=== PATIENT | male | born 1960 | race Caucasian/White ===

== ENCOUNTER 2018-01-16 18:31 | Observation (INO) | payer BC, OTHER ==
[~2018-01-16] VITALS: Ht 175.3 cm; Wt 62.2 kg
[2018-01-16 18:33] VITALS: BP 156/83; PULSE 95; RESP 18; TEMP 99.4; O2SAT 97
[2018-01-16] MEDS ORDERED: SODIUM CHLORIDE 0.9% FLUSH 10 ML FLUSH IV FLUSH PRN ×2 (19:00→21:15)
[2018-01-16 19:16] VITALS: RESP 18; O2SAT 95
[2018-01-16 19:21] LABS: AUTOMATED NEUTROPHIL # 3.1 TH/MM3 (1.8-7.7); BASOPHIL # 0.1 TH/MM3 (0-0.2); BASOPHIL % 2.1 % (0.0-2.0); EOSINOPHIL # 0.3 TH/MM3 (0-0.4); EOSINOPHIL % 5.1 % (0.0-4.0); HEMATOCRIT 40.5 % (39.0-51.0); HEMOGLOBIN 13.8 GM/DL (13.0-17.0); LYMPH % 30.5 % (9.0-44.0); LYMPHOCYTE # 1.7 TH/MM3 (1.0-4.8); MEAN CELL VOLUME 94.2 FL (80.0-100.0); MEAN CORPUSCULAR HEMOGLOBIN 32.1 PG (27.0-34.0); MEAN CORPUSCULAR HGB CONC 34.1 % (32.0-36.0); MEAN PLATELET VOLUME 8.5 FL (7.0-11.0); MONOCYTE # 0.5 TH/MM3 (0-0.9); NEUT % 54.3 % (16.0-70.0); PLATELET COUNT 121 TH/MM3 (150-450); RED CELL DISTRIBUTION WIDTH 11.7 % (11.6-17.2); WHITE BLOOD COUNT 5.7 TH/MM3 (4.0-11.0)
[2018-01-16 19:22] LABS: BILIRUBIN, URINE NEG (NEG); BLOOD, URINE NEG (NEG); GLUCOSE,URINE NEG (NEG); KETONE, URINE NEG (NEG); NITRITE,URINE NEG (NEG); PH, URINE 5.5 (5.0-8.5); URINE COLOR YELLOW (YELLW/STRAW); URINE LEUKOCYTE ESTERASE NEG (NEG)
--- NOTE | 2018-01-16 19:37 | RADRPT ---
EXAM DATE/TIME: 01/16/2018 19:09 [place] COMPARISON: No previous studies available for comparison. INDICATIONS : Left side chest pain. No known injury. MEDICAL HISTORY : None. SURGICAL HISTORY : None. ENCOUNTER: Initial ACUITY: 2 weeks PAIN SCORE: 4/10 LOCATION: Left chest FINDINGS: PA and lateral views of the chest demonstrate the lungs to be symmetrically aerated without evidence of mass, infiltrate or effusion. The cardiomediastinal contours are unremarkable. Osseous structure s are intact. CONCLUSION: No acute disease. Roger Parnell MD on January 16, 2018 at 19:34 Board Certified Radiologist. This report was verified electronically.
[2018-01-16 19:52] LABS: CHLORIDE 99 MEQ/L (98-107); SODIUM (NA) 133 MEQ/L (136-145)
[2018-01-16 19:55] LABS: CALCIUM 8.9 MG/DL (8.5-10.1)
[2018-01-16 19:56] LABS: BICARBONATE 24.6 MEQ/L (21.0-32.0); BLOOD UREA NITROGEN 5 MG/DL (7-18); GLUCOSE,RANDOM 89 MG/DL (74-106)
[2018-01-16 19:59] LABS: ALT (GPT) 98 U/L (12-78); AST (GOT) 93 U/L (15-37); CREATININE 0.59 MG/DL (0.60-1.30); GLOMERULAR FILTRATION RATE 143 ML/MIN (>89)
[2018-01-16 20:01] LABS: TOTAL BILIRUBIN ADULT 0.6 MG/DL (0.2-1.0); TOTAL PROTEIN 8.2 GM/DL (6.4-8.2)
[2018-01-16 20:02] LABS: ALKALINE PHOSPHATASE 97 U/L (45-117)
[2018-01-16 20:04] LABS: TROPONIN I LESS THAN 0.02 NG/ML (0.02-0.05)
--- NOTE | 2018-01-16 20:09 | PD ---
HPI Chief Complaint: General Weakness Time Seen by Provider: 18:44 Travel History International Travel<30 days: No Contact w/Intl Traveler<30days: No Traveled to known affect area: No History of Present Illness HPI 57-year-old male arrives describing left-sided chest pain towards the lower portion of the chest and into the back. He reports loss of appetite for 2 weeks. He reports fatigue and state of excessive tiredness. Any movement leads to lightheadedness. He reports vomiting today. He denies diarrhea. He denies nausea. No shortness of breath or chest pain. Patient reports striking alcohol for most of his life at least 8 drinks daily. No cough. No fever. PFSH Past Medical History Tetanus Vaccination: > 5 Years Influenza Vaccination: No Social History Alcohol Use: Yes (12 Beers/Day) Tobacco Use: Yes (1.5 PPD) Substance Use: No Allergies-Medications (Allergen,Severity, Reaction): Coded Allergies: No Known Allergies (Verified Allergy, Unknown, 01/16/18) Reported Meds & Prescriptions Reported Meds & Active Scripts Active Review of Systems Except as stated in HPI: all other systems reviewed are Neg General / Constitutional: No: Fever Physical Exam Narrative GENERAL: 57-year-old male pleasant well-nourished well-developed Vital Signs Date Time Temp Pulse Resp B/P (MAP) Pulse Ox O2 Delivery O2 Flow Rate FiO2 01/16/18 19:16 18 95 Room Air 01/16/18 19:00 18 95 Room Air 01/16/18 18:33 99.4 95 18 156/83 (107) 97 SKIN: Warm and dry. HEAD: Atraumatic. Normocephalic. EYES: Pupils equal and round. No scleral icterus. No injection or drainage. ENT: No nasal bleeding or discharge. Mucous membranes pink and moist. NECK: Trachea midline. No JVD. CARDIOVASCULAR: Regular rate and rhythm. RESPIRATORY: No accessory muscle use. Clear to auscultation. Breath sounds equal bilaterally. GASTROINTESTINAL: Abdomen soft, non-tender, nondistended. Hepatic and splenic margins not palpable. MUSCULOSKELETAL: Extremities without clubbing, cyanosis, or edema. No obvious deformities. NEUROLOGICAL: Awake and alert. No obvious cranial nerve deficits. Motor grossly within normal limits. Five out of 5 muscle strength in the arms and legs. Normal speech. PSYCHIATRIC: Appropriate mood and affect; insight and judgment normal. Data Data Last Documented VS Vital Signs Date Time Temp Pulse Resp B/P (MAP) Pulse Ox O2 Delivery O2 Flow Rate FiO2 01/16/18 19:16 18 95 Room Air 01/16/18 18:33 99.4 95 156/83 (107) Orders Orders Electrocardiogram (01/16/18 18:49) Complete Blood Count With Diff (01/16/18 18:49) Comprehensive Metabolic Panel (01/16/18 18:49) Creatine Kinase (Cpk) (01/16/18 18:49) Prothrombin Time / Inr (Pt) (01/16/18 18:49) Act Partial Throm Time (Ptt) (01/16/18 18:49) Troponin I (01/16/18 18:49) Thyroid Stimulating Hormone (01/16/18 18:49) Urinalysis - C+S If Indicated (01/16/18 18:49) Chest, Pa & Lat (01/16/18 18:49) Ecg Monitoring (01/16/18 18:49) Iv Access Insert/Monitor (01/16/18 18:49) Oximetry (01/16/18 18:49) Sodium Chloride 0.9% Flush (Ns Flush) (01/16/18 19:00) Drug Screen, Random Urine (01/16/18 18:49) Alcohol (Ethanol) (01/16/18 18:49) Admit Order (Ed Use Only) (01/16/18 ) Customer Supply Coordinator / Telemetry [id number] (01/16/18 21:07) Vital Signs (Adult) Q4H (01/16/18 21:07) Diet Npo (01/17/18 Breakfast) Activity Bed Rest (01/16/18 21:07) Notify Dr: Other (01/16/18 21:07) Labs Laboratory Tests Test 01/16/18 19:00 01/16/18 19:10 Urine Collection Type CLEAN CATCH Urine Color YELLOW Urine Turbidity CLEAR Urine pH 5.5 Urine Specific [place] LESS/EQUAL 1.005 Urine Protein NEG mg/dL Urine Glucose (UA) NEG mg/dL Urine Ketones NEG mg/dL Urine Occult Blood NEG Urine Nitrite NEG Urine Bilirubin NEG Urine Urobilinogen 0.2 MG/DL Urine Leukocyte Esterase NEG Urine Squamous Epithelial Cells 0-5 /hpf Microscopic Urinalysis Comment CULT NOT INDICATED Urine Opiates Screen NEG Urine Barbiturates Screen NEG Urine Amphetamines Screen NEG Urine Benzodiazepines Screen NEG Urine Cocaine Screen NEG Urine Cannabinoids Screen NEG White Blood Count 5.7 TH/MM3 Red Blood Count 4.30 MIL/MM3 Hemoglobin 13.8 GM/DL Hematocrit 40.5 % Mean Corpuscular Volume 94.2 FL Mean Corpuscular Hemoglobin 32.1 PG Mean Corpuscular Hemoglobin Concent 34.1 % Red Cell Distribution Width 11.7 % Platelet Count 121 TH/MM3 Mean Platelet Volume 8.5 FL Neutrophils (%) (Auto) 54.3 % Lymphocytes (%) (Auto) 30.5 % Monocytes (%) (Auto) 8.0 % Eosinophils (%) (Auto) 5.1 % Basophils (%) (Auto) 2.1 % Neutrophils # (Auto) 3.1 TH/MM3 Lymphocytes # (Auto) 1.7 TH/MM3 Monocytes # (Auto) 0.5 TH/MM3 Eosinophils # (Auto) 0.3 TH/MM3 Basophils # (Auto) 0.1 TH/MM3 CBC Comment DIFF FINAL Differential Comment Prothrombin Time 11.3 SEC Prothromb Time International Ratio 1.1 RATIO Activated Partial Thromboplast Time 28.7 SEC Blood Urea Nitrogen 5 MG/DL Creatinine 0.59 MG/DL Random Glucose 89 MG/DL Total Protein 8.2 GM/DL Albumin 4.0 GM/DL Calcium Level 8.9 MG/DL Alkaline Phosphatase 97 U/L Aspartate Amino Transf (AST/SGOT) 93 U/L Alanine Aminotransferase (ALT/SGPT) 98 U/L Total Bilirubin 0.6 MG/DL Sodium Level 133 MEQ/L Potassium Level 3.4 MEQ/L Chloride Level 99 MEQ/L Carbon Dioxide Level 24.6 MEQ/L Anion Gap 9 MEQ/L Estimat Glomerular Filtration Rate 143 ML/MIN Total Creatine Kinase 91 U/L Troponin I LESS THAN 0.02 NG/ML Thyroid Stimulating Hormone 3rd Gen 1.760 uIU/ML Ethyl Alcohol Level 46 MG/DL [facility] Medical Decision Making Medical Screen Exam Complete: Yes Emergency Medical Condition: Yes Medical Record Reviewed: Yes Differential Diagnosis cirrhosis, anemia, pneumonia, pneumothorax, metabolic disorder Narrative Course CBC & BMP Diagram 01/16/18 19:10 Total Protein 8.2, Albumin 4.0, Calcium Level 8.9, Alkaline Phosphatase 97, Aspartate Amino Transf (AST/SGOT) 93 H, Alanine Aminotransferase (ALT/SGPT) 98 H , Total Bilirubin 0.6 The troponin is less than 0.02 EKG shows sinus rhythm with a rate 84 with T-wave inversions in multiple lateral leads Last Impressions Chest X-Ray 01/16/18 3091 Signed Impressions: Service Date/Time: Tuesday, January 16, 2018 19:09 - CONCLUSION: No acute disease. Roger Parnell MD There is concern that the patient has liver disease due to chronic drinking. The EKG abnormalities coupled with left-sided chest pain is also of concern. The patient is a smoker. He has no family history of coronary artery disease diabetes hypertension hyperlipidemia. A low risk chest pain center evaluation is considered reasonable for this patient is amenable to plan. Case was discussed with Shun for the [facility] service. Admission under Dr Olivares Diagnosis Primary Impression: Chest pain Qualified Codes: R07.9 - Chest pain, unspecified Additional Impressions: Alcoholism Transaminitis Admitting Information Admitting Physician Requests: Observation Brennen Herman MD Jan 16, 2018 20:09
[2018-01-16 20:25] LABS: SQUAMOUS EPITHELIAL CELL URINE 0-5 /hpf (0-5)
[2018-01-16] MEDS ORDERED: NITROGLYCERIN 0.4 MG SL 25 TABS/BTL SL PRN (21:15)
[2018-01-16 21:20] LABS: INTERNATIONAL NORMALIZED RATIO 1.1 RATIO; PROTHROMBIN TIME - PATIENT 11.3 SEC (9.8-11.6)
[2018-01-16] MEDS ORDERED: MORPHINE SULFATE 2 MG/ML SYRINGE IV PUSH PRN (21:30)
[2018-01-16 22:45] VITALS: PULSE 66
[2018-01-17] VITALS: BP 156/84; PULSE 68; RESP 18; TEMP 97.5; O2SAT 97
[2018-01-17 01:10] VITALS: O2SAT 98
[2018-01-17 01:52] LABS: TROPONIN I LESS THAN 0.02 NG/ML (0.02-0.05)
[2018-01-17 04:00] VITALS: BP 122/73; PULSE 66; RESP 18; TEMP 97.6; O2SAT 97
[2018-01-17 08:00] VITALS: BP 120/79; PULSE 65; PULSE 68; RESP 18; TEMP 98.5; O2SAT 97
[2018-01-17 08:23] LABS: TROPONIN I LESS THAN 0.02 NG/ML (0.02-0.05)
--- NOTE | 2018-01-17 08:25 | HHI.HP ---
[facility] Service [facility] Primary Care Physician No Primary Care Physician Admission Diagnosis Chest Pain Diagnoses: (1) Chest pain Chief Complaint: Chest discomfort Travel History International Travel<30 Days: No Contact w/Intl Traveler <30 Da: No Traveled to Known Affected Are: No History of Present Illness 58-year-old male with no chronic medical illnesses who presented to the emergency department for evaluation of chest discomfort. Patient states that for the last few weeks he has been experiencing a pain noted in his left lower rib cage without any radiation to his neck, back, shoulder, arm. He states that it is the pain 3/10 on a pain scale he states that it lasts for a few minutes at a time and resolves on its own. He states he had up to 3 times daily with associated nausea, dizziness. Indicates that it is nonexertional, does not worsen whenever he eats. There is no shortness of breath, dyspnea, diaphoresis, vomiting. He has had decreased appetite over the last few weeks as well. Patient had evaluation in the emergency department is recommended that the patient be observed in chest pain center for further evaluation and management. Review of Systems Constitutional: COMPLAINS OF: Dizziness, Change in appetite Cardiovascular: COMPLAINS OF: Chest pain Gastrointestinal: COMPLAINS OF: Nausea Except as stated in HPI: all other systems reviewed are Neg Past Family Social History Past Medical History No chronic medical illnesses Past Surgical History Lipoma removal Reported Medications No outpatient medications Allergies: Coded Allergies: No Known Allergies (Verified Allergy, Unknown, 01/16/18) Family History Family history reviewed and unremarkable for any heart disease, lung disease, kidney disease, diabetes, cancer, seizures, stroke Social History Patient continues to smoke 1 pack of cigarettes a day since he was 19 years old , he does drink alcohol daily 6-8 beers. Denies any illicit drug Physical Exam Vital Signs Vital Signs Date Time Temp Pulse Resp B/P (MAP) Pulse Ox O2 Delivery O2 Flow Rate FiO2 01/17/18 04:00 97.6 66 18 122/73 (89) 97 01/17/18 01:10 98 21 01/17/18 00:00 97.5 68 18 156/84 (108) 97 01/16/18 22:45 66 01/16/18 19:16 18 95 Room Air 01/16/18 19:00 18 95 Room Air 01/16/18 18:33 99.4 95 18 156/83 (107) 97 Physical Exam GENERAL: Well-developed, well-nourished, in no acute distress. alert and orientated HEENT: Head is normocephalic without any lesions or masses noted. Facial features are symmetric. Eyes: Pupils equal round reactive to light. Extraocular muscles are intact. Conjunctivae were clear. Oropharyngeal: Pharynx without any erythema edema. Tongue is midline without deviation. Buccal mucosa is moist without any masses or lesions NECK: Supple without any masses. Trachea midline no deviation. No JVD, no bruits are appreciated CARDIAC: Regular rhythm, regular rate. S1/S2 are heard. No murmurs gallops or rubs. LUNGS: Clear to auscultation bilaterally. No wheeze, rhonchi or rales. No use of accessory muscles on inspiration or expiration. ABDOMEN: Soft, nontender. Nondistended. Bowel sounds heard in all 4 quadrants. No organomegaly or masses. Negative rebound, negative guarding EXTREMITIES: No edema, pulses are equal bilaterally. No cyanosis or clubbing NEUROLOGY: Mood and affect appear appropriate. Cranial nerves II through XII grossly intact. Muscle strength 5/5 in upper and lower extremities bilaterally. Deep tendon reflexes are 2+ in upper and lower extremities bilaterally. Laboratory Laboratory Tests Test 01/16/18 19:00 01/16/18 19:10 01/17/18 01:30 01/17/18 07:25 Urine Collection Type CLEAN CATCH Urine Color YELLOW Urine Turbidity CLEAR Urine pH 5.5 Urine Specific [place] LESS/EQUAL 1.005 Urine Protein NEG Urine Glucose (UA) NEG Urine Ketones NEG Urine Occult Blood NEG Urine Nitrite NEG Urine Bilirubin NEG Urine Urobilinogen 0.2 Urine Leukocyte Esterase NEG Urine Squamous Epithelial Cells 0-5 Microscopic Urinalysis Comment CULT NOT INDICATED Urine Opiates Screen NEG Urine Barbiturates Screen NEG Urine Amphetamines Screen NEG Urine Benzodiazepines Screen NEG Urine Cocaine Screen NEG Urine Cannabinoids Screen NEG White Blood Count 5.7 Red Blood Count 4.30 Hemoglobin 13.8 Hematocrit 40.5 Mean Corpuscular Volume 94.2 Mean Corpuscular Hemoglobin 32.1 Mean Corpuscular Hemoglobin Concent 34.1 Red Cell Distribution Width 11.7 Platelet Count 121 Mean Platelet Volume 8.5 Neutrophils (%) (Auto) 54.3 Lymphocytes (%) (Auto) 30.5 Monocytes (%) (Auto) 8.0 Eosinophils (%) (Auto) 5.1 Basophils (%) (Auto) 2.1 Neutrophils # (Auto) 3.1 Lymphocytes # (Auto) 1.7 Monocytes # (Auto) 0.5 Eosinophils # (Auto) 0.3 Basophils # (Auto) 0.1 CBC Comment DIFF FINAL Differential Comment Prothrombin Time 11.3 Prothromb Time International Ratio 1.1 Activated Partial Thromboplast Time 28.7 Blood Urea Nitrogen 5 Creatinine 0.59 Random Glucose 89 Total Protein 8.2 Albumin 4.0 Calcium Level 8.9 Alkaline Phosphatase 97 Aspartate Amino Transf (AST/SGOT) 93 Alanine Aminotransferase (ALT/SGPT) 98 Total Bilirubin 0.6 Sodium Level 133 Potassium Level 3.4 Chloride Level 99 Carbon Dioxide Level 24.6 Anion Gap 9 Estimat Glomerular Filtration Rate 143 Total Creatine Kinase 91 81 Troponin I LESS THAN 0.02 LESS THAN 0.02 Thyroid Stimulating Hormone 3rd Gen 1.760 Ethyl Alcohol Level 46 Result Diagram: 01/16/18190901/16/181909 Imaging Last Impressions Chest X-Ray 01/16/18 184 Signed Impressions: Service Date/Time: Tuesday, January 16, 2018 19:09 - CONCLUSION: No acute disease. MD Moo Prasad VTE Risk Assessment Moo VTE Risk Assessment: No/Low Risk (score <= 1) Caprini Risk Assessment Model Point Value = 1 Point Value = 2 Point Value = 3 Point Value = 5 Age 41-60 Minor surgery BMI > 25 kg/m2 Swollen legs Varicose veins or History of unexplained or recurrent spontaneous Oral contraceptives or hormone replacement Sepsis (< 1 month) Serious lung disease, including pneumonia (< 1 month) Abnormal pulmonary function Acute myocardial infarction Congestive heart failure (< 1 month) History of inflammatory bowel disease Medical patient at bed rest Age 61-74 Arthroscopic surgery Major open surgery (> 45 min) Laparoscopic surgery (> 45 min) Malignancy Confined to bed (> 72 hours) Immobilizing plaster cast Central venous access Age >= 75 History of VTE Family history of VTE Factor V Leiden Prothrombin [id number] Lupus anticoagulant Anticardiolipin antibodies Elevated serum homocysteine Heparin-induced thrombocytopenia Other congenital or acquired thrombophilia Stroke (< 1 month) Elective arthroplasty Hip, pelvis, or leg fracture Acute spinal cord injury (< 1 month) Prophylaxis Regimen Total Risk Factor Score Risk Level Prophylaxis Regimen 0-1 Low Early ambulation 2 Moderate Order ONE of the following: *Sequential Compression Device (SCD) *Heparin 5000 units SQ BID 3-4 Higher Order ONE of the following medications: *Heparin 5000 units SQ TID *Enoxaparin/Lovenox 40 mg SQ daily (WT < 150 kg, CrCl > 30 mL/min) *Enoxaparin/Lovenox 30 mg SQ daily (WT < 150 kg, CrCl > 10-29 mL/min) *Enoxaparin/Lovenox 30 mg SQ BID (WT < 150 kg, CrCl > 30 mL/min) AND/OR *Sequential Compression Device (SCD) 5 or more Highest Order ONE of the following medications: *Heparin 5000 units SQ TID (Preferred with Epidurals) *Enoxaparin/Lovenox 40 mg SQ daily (WT < 150 kg, CrCl > 30 mL/min) *Enoxaparin/Lovenox 30 mg SQ daily (WT < 150 kg, CrCl > 10-29 mL/min) *Enoxaparin/Lovenox 30 mg SQ BID (WT < 150 kg, CrCl > 30 mL/min) AND *Sequential Compression Device (SCD) Assessment and Plan Assessment and Plan Chest pain, atypical Patient with minimal risk factors to include age, tobacco use Patient has been ruled out for acute coronary event with serial cardiac enzymes that are negative Serial EKGs reviewed by myself shows sinus rhythm without any changes Lipase was performed which was normal Exercise stress test was performed and did not indicate any signs of ischemia Transaminitis Likely secondary to chronic alcohol use Physical exam unremarkable for any acute etiology Recommend outpatient follow-up and monitoring Acute intoxication with chronic alcohol use Monitor for withdrawal Chronic tobacco use Counseled on cessation DVT prevention Low risk, early ambulation Discharge disposition Discharge home in stable condition Activity: Ad digna. Diet: Regular diet Medication per medication reconciliation Follow-up with primary medical doctor in 1 week Problem Qualifiers (1) Chest pain: Qualified Codes: R07.9 - Chest pain, unspecified Bryan Irving Jan 17, 2018 08:25
[2018-01-17] MEDS ORDERED: PANTOPRAZOLE SOD 40 MG DELAYED RELEASE TAB PO SCH (09:00)
[2018-01-17] MEDS ORDERED: SODIUM CHLORIDE 0.9% FLUSH 10 ML FLUSH IV FLUSH SCH (09:00)
--- NOTE | 2018-01-17 09:12 | HHI.DCPOC ---
Discharge Care Plan Diagnosis: (1) Chest pain Goals to Promote Your Health * To prevent worsening of your condition and complications * To maintain your health at the optimal level Directions to Meet Your Goals Take your medications as prescribed Follow your dietary instruction Follow activity as directed Keep your appointments as scheduled Take your immunizations and boosters as scheduled If your symptoms worsen call your PCP, if no PCP go to Urgent Care Center or Emergency Room Smoking is Dangerous to Your Health. Avoid second hand smoke Call the 24-hour hour crisis hotline for domestic abuse at Bryan Irving Jan 17, 2018 09:12
[2018-01-17] MEDS ORDERED: PANT40TA3 PO (09:13)
--- NOTE | 2018-01-18 18:01 | TR ---
Date Performed: 01/17/2018 Time Performed: 08:54:08 DOCTOR: Rosa Pappas DRUG LIST: CLINICAL HISTORY: CHEST PAIN REASON FOR TEST: Chest pain REASON FOR ENDING: Completed Protocol OBSERVATION: Arrhythmia: None Chest Pain: None CONCLUSION: Patient tolerated JANETTE protocol with Total Exercise Time=7:40 Maximum HO=845 % Max HR Achieved=86.0% Maximum JF=717/82, Patient was asymptomatic during testing, Testing stopped seconda ry to goals acheived, patient reached target HR, During peak exercise, quick upsloping ST segments, H R and BP appropriate response to exercise. Recovery: HR and BP returned to baseline COMMENTS: No iscehmia
--- NOTE | 2018-01-18 18:03 | EKG ---
Date Performed: 01/17/2018 Time Performed: 07:35:00 PTAGE: 58 years EKG: Sinus rhythm NORMAL ECG Since PREVIOUS TRACING , no significant change noted PREVIOUS TRACIN01/17/2018 01.12 DOCTOR: Rosa Pappas Interpretating Date/Time 01/18/2018 18:02:15
--- NOTE | 2018-01-18 18:04 | EKG ---
Date Performed: 01/17/2018 Time Performed: 01:12:39 PTAGE: 58 years EKG: Sinus rhythm NORMAL ECG Since PREVIOUS TRACING , no significant change noted PREVIOUS TRACIN01/16/2018 19.04 DOCTOR: Rosa Pappas Interpretating Date/Time 01/18/2018 18:03:36
--- NOTE | 2018-01-18 18:06 | EKG ---
Date Performed: 01/16/2018 Time Performed: 19:04:00 PTAGE: 57 years EKG: Sinus rhythm POSSIBLE LEFT ATRIAL ENLARGEMENT POSSIBLE RIGHT VENTRICULAR CONDUCTION DELAY POSSIBLE LEFT VENTRICUL AR HYPERTROPHY MODERATE T-WAVE ABNORMALITY, CONSIDER LATERAL ISCHEMIA ABNORMAL ECG NO PREVIOUS TRACING DOCTOR: Rosa Pappas Interpretating Date/Time 01/18/2018 18:04:52
== END 2018-01-17 11:16 | disposition home or self-care (01) ==
LOC: PHED 18:31 → PHEDA 21:09 → PH3A 22:20
PROVIDERS: ADMIT Hospitalist; ATTEND Hospitalist
DX: R07.89 Other chest pain (principal); R74.0 Nonspecific elevation of levels of transaminase and lactic acid dehydrogenase [LDH]; R11.2 Nausea with vomiting, unspecified; R42 Dizziness and giddiness; R63.0 Anorexia; F10.20 Alcohol dependence, uncomplicated; F17.210 Nicotine dependence, cigarettes, uncomplicated
CPT/HCPCS: 71046; 80053; 80307; 81001; 82550; 83690; 84443; 84484; 85025; 85610; 85730; 93005; 93017; 99285; G0378

== ENCOUNTER 2018-01-31 16:19 | Emergency (ER) | payer OTHER ==
[~2018-01-31] VITALS: Ht 175.3 cm; Wt 72.0 kg
[~2018-01-31 16:19] MED LIST: PANT40TA3 PO
[2018-01-31 16:35] VITALS: BP 139/91; PULSE 96; RESP 16; TEMP 98.6; O2SAT 98
[2018-01-31] MEDS ORDERED: SODIUM CHLOR 0.9% 1000 ML INJ 1,000 ML IV SCH (16:56)
[2018-01-31] MEDS ORDERED: FAMOTIDINE 20 MG/2 ML VIAL IV PUSH ONE (17:00)
[2018-01-31] MEDS ORDERED: ONDANSETRON HCL 4 MG/2 ML VIAL IVP ONE (17:00)
[2018-01-31] MEDS ORDERED: SODIUM CHLORIDE 0.9% FLUSH 10 ML FLUSH IV FLUSH PRN (17:00)
--- NOTE | 2018-01-31 17:00 | PD ---
HPI Chief Complaint: GI Complaint Time Seen by Provider: 16:55 Travel History International Travel<30 days: No Contact w/Intl Traveler<30days: No Traveled to known affect area: No History of Present Illness HPI 58-year-old male patient with history of alcohol abuse, presents to the ER today for ongoing problems with left upper quadrant abdominal pains, worse in the last few days, nausea, states is currently a 5 out of 10 and intermittent in nature. He had been seen last week for similar symptoms and ended up getting his heart checked out, stress testing was unremarkable according to the patient. He denies any fevers, diarrhea, or any other symptoms. He states he has had decreased p.o. intake because of it. Modifying Factors: None Associated Signs & Symptoms: Left upper quadrant abdominal pains, nausea Risk Factors: Alcohol use PFSH Past Medical History Autoimmune Disease: No Anxiety: No Depression: No Heart Rhythm Problems: No Cancer: No Chest Pain: Yes Diabetes: No Genitourinary: No Musculoskeletal: No Neurologic: No Respiratory: Yes Thyroid Disease: No Social History Alcohol Use: Yes (12 Beers/Day) Tobacco Use: Yes (1.5 PPD) Substance Use: No Allergies-Medications (Allergen,Severity, Reaction): Coded Allergies: No Known Allergies (Verified Allergy, Unknown, 01/16/18) Reported Meds & Prescriptions Reported Meds & Active Scripts Active No Active Prescriptions or Reported Medications Review of Systems Except as stated in HPI: all other systems reviewed are Neg Physical Exam Narrative GENERAL: Well-developed middle-age male patient currently in mild distress. Awake and oriented 3. SKIN: Focused skin assessment warm/dry. HEAD: Atraumatic. Normocephalic. EYES: Pupils equal and round. No scleral icterus. No injection or drainage. ENT: No nasal bleeding or discharge. Mucous membranes pink and moist. NECK: Trachea midline. No JVD. Supple. CARDIOVASCULAR: Regular rate and rhythm. No murmur appreciated. RESPIRATORY: No accessory muscle use. Clear to auscultation. Breath sounds equal bilaterally. GASTROINTESTINAL: Abdomen soft, mild left upper quadrant tenderness without guarding or rebound, nondistended. Hepatic and splenic margins not palpable. MUSCULOSKELETAL: No obvious deformities. No clubbing. No cyanosis. No edema. NEUROLOGICAL: Awake and alert. No obvious cranial nerve deficits. Motor grossly within normal limits. Normal speech. PSYCHIATRIC: Appropriate mood and affect; insight and judgment normal. Data Data Last Documented VS Vital Signs Date Time Temp Pulse Resp B/P (MAP) Pulse Ox O2 Delivery O2 Flow Rate FiO2 01/31/18 16:35 98.6 96 16 139/91 (107) 98 Orders Orders Complete Blood Count With Diff (01/31/18 16:56) Comprehensive Metabolic Panel (01/31/18 16:56) Lipase (01/31/18 16:56) Urinalysis - C+S If Indicated (01/31/18 16:56) Iv Access Insert/Monitor (01/31/18 16:56) Ecg Monitoring (01/31/18 16:56) Oximetry (01/31/18 16:56) Sodium Chloride 0.9% Flush (Ns Flush) (01/31/18 17:00) Ondansetron Inj (Zofran Inj) (01/31/18 17:00) Sodium Chlor 0.9% 1000 Ml Inj (Ns 1000 M (01/31/18 16:56) Famotidine Inj (Pepcid Inj) (01/31/18 17:00) Ct Abd/Pel W Iv Contrast(Rout) (01/31/18 19:03) Labs Laboratory Tests Test 01/31/18 17:02 White Blood Count 5.0 TH/MM3 Red Blood Count 4.48 MIL/MM3 Hemoglobin 14.8 GM/DL Hematocrit 42.7 % Mean Corpuscular Volume 95.3 FL Mean Corpuscular Hemoglobin 33.0 PG Mean Corpuscular Hemoglobin Concent 34.7 % Red Cell Distribution Width 12.9 % Platelet Count 105 TH/MM3 Mean Platelet Volume 9.2 FL Neutrophils (%) (Auto) 48.4 % Lymphocytes (%) (Auto) 34.3 % Monocytes (%) (Auto) 11.0 % Eosinophils (%) (Auto) 5.2 % Basophils (%) (Auto) 1.1 % Neutrophils # (Auto) 2.4 TH/MM3 Lymphocytes # (Auto) 1.7 TH/MM3 Monocytes # (Auto) 0.6 TH/MM3 Eosinophils # (Auto) 0.3 TH/MM3 Basophils # (Auto) 0.1 TH/MM3 CBC Comment DIFF FINAL Differential Comment Blood Urea Nitrogen 3 MG/DL Creatinine 0.59 MG/DL Random Glucose 88 MG/DL Total Protein 7.9 GM/DL Albumin 4.3 GM/DL Calcium Level 9.4 MG/DL Alkaline Phosphatase 96 U/L Aspartate Amino Transf (AST/SGOT) 83 U/L Alanine Aminotransferase (ALT/SGPT) 84 U/L Total Bilirubin 0.6 MG/DL Sodium Level 136 MEQ/L Potassium Level 3.7 MEQ/L Chloride Level 102 MEQ/L Carbon Dioxide Level 24.3 MEQ/L Anion Gap 10 MEQ/L Estimat Glomerular Filtration Rate 142 ML/MIN Lipase 154 U/L MDM Medical Decision Making Medical Screen Exam Complete: Yes Emergency Medical Condition: Yes Medical Record Reviewed: Yes Interpretation(s) Laboratory Tests Test 01/31/18 17:02 Red Blood Count 4.48 MIL/MM3 (4.50-5.90) Platelet Count 105 TH/MM3 (150-450) Monocytes (%) (Auto) 11.0 % (0.0-8.0) Eosinophils (%) (Auto) 5.2 % (0.0-4.0) Blood Urea Nitrogen 3 MG/DL (7-18) Creatinine 0.59 MG/DL (0.60-1.30) Aspartate Amino Transf (AST/SGOT) 83 U/L (15-37) Alanine Aminotransferase (ALT/SGPT) 84 U/L (12-78) Differential Diagnosis Gastritis versus gastroenteritis versus pancreatitis versus other acute intra- abdominal processes Narrative Course Lab work shows mildly elevated LFTs but lipase is fairly unremarkable. Patient was given Zofran and IV fluids as well as Zantac in the ER with some improvement in symptoms. CAT scan was ordered for further evaluation in the ER considering that he did not get this in his previous workup. Physician Communication Physician Communication Case is signed out to Dr. Bailey at 7:20 PM pending CAT scan. Planning to discharge if CAT scan is unremarkable. Diagnosis Primary Impression: Gastritis Additional Impression: Alcohol use Scripts No Active Prescriptions or Reported Meds Disposition: 01 DISCHARGE HOME Condition: Stable SoonRosario mccall MD Jan 31, 2018 16:59
[2018-01-31 17:32] LABS: AUTOMATED NEUTROPHIL # 2.4 TH/MM3 (1.8-7.7); BASOPHIL # 0.1 TH/MM3 (0-0.2); BASOPHIL % 1.1 % (0.0-2.0); EOSINOPHIL # 0.3 TH/MM3 (0-0.4); EOSINOPHIL % 5.2 % (0.0-4.0); HEMATOCRIT 42.7 % (39.0-51.0); HEMOGLOBIN 14.8 GM/DL (13.0-17.0); LYMPH % 34.3 % (9.0-44.0); LYMPHOCYTE # 1.7 TH/MM3 (1.0-4.8); MEAN CELL VOLUME 95.3 FL (80.0-100.0); MEAN CORPUSCULAR HGB CONC 34.7 % (32.0-36.0); MEAN PLATELET VOLUME 9.2 FL (7.0-11.0); MONOCYTE # 0.6 TH/MM3 (0-0.9); NEUT % 48.4 % (16.0-70.0); PLATELET COUNT 105 TH/MM3 (150-450); RED BLOOD COUNT 4.48 MIL/MM3 (4.50-5.90); RED CELL DISTRIBUTION WIDTH 12.9 % (11.6-17.2)
[2018-01-31 17:44] LABS: ALBUMIN 4.3 GM/DL (3.4-5.0); ALT (GPT) 84 U/L (12-78); AST (GOT) 83 U/L (15-37); BICARBONATE 24.3 MEQ/L (21.0-32.0); BLOOD UREA NITROGEN 3 MG/DL (7-18); CALCIUM 9.4 MG/DL (8.5-10.1); CHLORIDE 102 MEQ/L (98-107); CREATININE 0.59 MG/DL (0.60-1.30); GLOMERULAR FILTRATION RATE 142 ML/MIN (>89); GLUCOSE,RANDOM 88 MG/DL (74-106); SODIUM (NA) 136 MEQ/L (136-145)
[2018-01-31 17:47] LABS: ALKALINE PHOSPHATASE 96 U/L (45-117); TOTAL BILIRUBIN ADULT 0.6 MG/DL (0.2-1.0); TOTAL PROTEIN 7.9 GM/DL (6.4-8.2)
[2018-01-31 19:28] LABS: BILIRUBIN, URINE NEG (NEG); BLOOD, URINE NEG (NEG); GLUCOSE,URINE NEG (NEG); KETONE, URINE NEG (NEG); NITRITE,URINE NEG (NEG); PH, URINE 6.5 (5.0-8.5); URINE COLOR LIGHT-YELLOW (YELLW/STRAW); URINE LEUKOCYTE ESTERASE NEG (NEG)
--- NOTE | 2018-01-31 19:28 | PD ---
Physical Exam Date Seen by Provider: Jan 31, 2018 Time Seen by Provider: 19:24 Narrative The patient is a 58-year-old male was initially evaluated by the previous physician. Please refer to the initial history, physical, diagnostic evaluation , and treatment modality plan. Patient was signed out at 7:[address] of the abdomen and pelvis pending. Data Data Last Documented VS Vital Signs Date Time Temp Pulse Resp B/P (MAP) Pulse Ox O2 Delivery O2 Flow Rate FiO2 01/31/18 16:35 98.6 96 16 139/91 (107) 98 Orders Orders Complete Blood Count With Diff (01/31/18 16:56) Comprehensive Metabolic Panel (01/31/18 16:56) Lipase (01/31/18 16:56) Urinalysis - C+S If Indicated (01/31/18 16:56) Iv Access Insert/Monitor (01/31/18 16:56) Ecg Monitoring (01/31/18 16:56) Oximetry (01/31/18 16:56) Sodium Chloride 0.9% Flush (Ns Flush) (01/31/18 17:00) Ondansetron Inj (Zofran Inj) (01/31/18 17:00) Sodium Chlor 0.9% 1000 Ml Inj (Ns 1000 M (01/31/18 16:56) Famotidine Inj (Pepcid Inj) (01/31/18 17:00) Ct Abd/Pel W Iv Contrast(Rout) (01/31/18 19:03) Iohexol 350 Inj (Omnipaque 350 Inj) (01/31/18 19:57) Al-Mag Hy-Si 40-40-4 Mg/Ml Liq (Mag-Al P (01/31/18 20:30) Lidocaine 2% Viscous (Xylocaine 2% Visco (01/31/18 20:30) Labs Laboratory Tests Test 01/31/18 17:02 01/31/18 19:05 White Blood Count 5.0 TH/MM3 Red Blood Count 4.48 MIL/MM3 Hemoglobin 14.8 GM/DL Hematocrit 42.7 % Mean Corpuscular Volume 95.3 FL Mean Corpuscular Hemoglobin 33.0 PG Mean Corpuscular Hemoglobin Concent 34.7 % Red Cell Distribution Width 12.9 % Platelet Count 105 TH/MM3 Mean Platelet Volume 9.2 FL Neutrophils (%) (Auto) 48.4 % Lymphocytes (%) (Auto) 34.3 % Monocytes (%) (Auto) 11.0 % Eosinophils (%) (Auto) 5.2 % Basophils (%) (Auto) 1.1 % Neutrophils # (Auto) 2.4 TH/MM3 Lymphocytes # (Auto) 1.7 TH/MM3 Monocytes # (Auto) 0.6 TH/MM3 Eosinophils # (Auto) 0.3 TH/MM3 Basophils # (Auto) 0.1 TH/MM3 CBC Comment DIFF FINAL Differential Comment Blood Urea Nitrogen 3 MG/DL Creatinine 0.59 MG/DL Random Glucose 88 MG/DL Total Protein 7.9 GM/DL Albumin 4.3 GM/DL Calcium Level 9.4 MG/DL Alkaline Phosphatase 96 U/L Aspartate Amino Transf (AST/SGOT) 83 U/L Alanine Aminotransferase (ALT/SGPT) 84 U/L Total Bilirubin 0.6 MG/DL Sodium Level 136 MEQ/L Potassium Level 3.7 MEQ/L Chloride Level 102 MEQ/L Carbon Dioxide Level 24.3 MEQ/L Anion Gap 10 MEQ/L Estimat Glomerular Filtration Rate 142 ML/MIN Lipase 154 U/L Urine Color LIGHT-YELLOW Urine Turbidity CLEAR Urine pH 6.5 Urine Specific [place] 1.002 Urine Protein NEG mg/dL Urine Glucose (UA) NEG mg/dL Urine Ketones NEG mg/dL Urine Occult Blood NEG Urine Nitrite NEG Urine Bilirubin NEG Urine Urobilinogen LESS THAN 2.0 MG/DL Urine Leukocyte Esterase NEG Urine RBC LESS THAN 1 /hpf Microscopic Urinalysis Comment CULT NOT INDICATED MDM Medical Record Reviewed: Yes Supervised Visit with HUGO: No Interpretation(s) Laboratory Tests Test 01/31/18 17:02 01/31/18 19:05 White Blood Count 5.0 TH/MM3 Red Blood Count 4.48 MIL/MM3 Hemoglobin 14.8 GM/DL Hematocrit 42.7 % Mean Corpuscular Volume 95.3 FL Mean Corpuscular Hemoglobin 33.0 PG Mean Corpuscular Hemoglobin Concent 34.7 % Red Cell Distribution Width 12.9 % Platelet Count 105 TH/MM3 Mean Platelet Volume 9.2 FL Neutrophils (%) (Auto) 48.4 % Lymphocytes (%) (Auto) 34.3 % Monocytes (%) (Auto) 11.0 % Eosinophils (%) (Auto) 5.2 % Basophils (%) (Auto) 1.1 % Neutrophils # (Auto) 2.4 TH/MM3 Lymphocytes # (Auto) 1.7 TH/MM3 Monocytes # (Auto) 0.6 TH/MM3 Eosinophils # (Auto) 0.3 TH/MM3 Basophils # (Auto) 0.1 TH/MM3 CBC Comment DIFF FINAL Differential Comment Blood Urea Nitrogen 3 MG/DL Creatinine 0.59 MG/DL Random Glucose 88 MG/DL Total Protein 7.9 GM/DL Albumin 4.3 GM/DL Calcium Level 9.4 MG/DL Alkaline Phosphatase 96 U/L Aspartate Amino Transf (AST/SGOT) 83 U/L Alanine Aminotransferase (ALT/SGPT) 84 U/L Total Bilirubin 0.6 MG/DL Sodium Level 136 MEQ/L Potassium Level 3.7 MEQ/L Chloride Level 102 MEQ/L Carbon Dioxide Level 24.3 MEQ/L Anion Gap 10 MEQ/L Estimat Glomerular Filtration Rate 142 ML/MIN Lipase 154 U/L Urine Color LIGHT-YELLOW Urine Turbidity CLEAR Urine pH 6.5 Urine Specific [place] 1.002 Urine Protein NEG mg/dL Urine Glucose (UA) NEG mg/dL Urine Ketones NEG mg/dL Urine Occult Blood NEG Urine Nitrite NEG Urine Bilirubin NEG Urine Urobilinogen LESS THAN 2.0 MG/DL Urine Leukocyte Esterase NEG Urine RBC LESS THAN 1 /hpf Microscopic Urinalysis Comment CULT NOT INDICATED CT of the abdomen and pelvis reveals a fatty liver. Degenerative changes of the lumbar spine. Mild S-shaped thoracolumbar curvature. Otherwise negative. No obstruction or acute/focal inflammatory changes are demonstrated. Differential Diagnosis Differential diagnosis includes alcoholic gastritis, gastritis, peptic ulcer disease, pancreatitis, biliary colic, cholecystitis, atypical [place], AAA, GERD, hiatal hernia. Narrative Course The patient is a 58-year-old male who was initially evaluated by the previous physician. Please refer to the initial history, physical, diagnostic evaluation , and treatment modality plan. The patient was signed out at 7:[address] of the abdomen and pelvis pending. LFTs were noted to be mildly elevated, lipase was unremarkable. Reviewed the EMR, previous stress test performed earlier this month was negative. The previous physician thought most likely alcoholic gastritis, discharge, CT of the abdomen and pelvis is negative. Patient's vitals are unremarkable except for mildly elevated heart rate in the 90s. UA was unremarkable. CT of the abdomen and pelvis reveals fatty liver and degenerative changes the lumbar spine, otherwise unremarkable. No obstruction or acute/focal inflammatory changes are demonstrated. The patient is advised to stop drinking alcohol, follow-up with a primary physician, take proton pump inhibitor as directed. The patient was prescribed Protonix on his previous admission, however, has not been taking the Protonix. I did advise him to start taking the Protonix once daily, decrease alcohol use, follow-up with the physician. Diagnosis Primary Impression: Gastritis Qualified Codes: K29.00 - Acute gastritis without bleeding Additional Impression: Alcohol use Patient Instructions: General Instructions Additional Instruction: Medications as directed. Follow-up with your primary physician. Return if symptoms worsen or progress. Follow-up with gastroenterology, you may benefit from outpatient endoscopy. Please provide the patient a copy of his labs and CT results at discharge. Med/Other Pt SpecificInfo: Prescription(s) given Scripts Pantoprazole (Pantoprazole) 40 Mg Tab 40 MG PO DAILY for Reflux, #30 TAB 0 Refills Prov: Solo Bailey MD 01/31/18 Disposition: DISCHARGE HOME Condition: Stable Solo Bailey MD Jan 31, 2018 19:28
[2018-01-31] MEDS ORDERED: IOHEXOL 350 MG/ML 10 ML VIAL (for RAD DIAG) IVCONTRAST ONE (19:57)
--- NOTE | 2018-01-31 20:15 | RADRPT ---
EXAM DATE/TIME: 01/31/2018 19:52 [facility] COMPARISON: No previous studies available for comparison. INDICATIONS : Abdomen pain. IV CONTRAST: 100 cc Omnipaque 350 (iohexol) IV ORAL CONTRAST: No oral contrast ingested. RADIATION DOSE: 4.85 CTDIvol (mGy) MEDICAL HISTORY : None SURGICAL HISTORY : None. ENCOUNTER: Initial ACUITY: 1 day PAIN SCALE: 5/10 LOCATION: Bilateral abdomen TECHNIQUE: Volumetric scanning of the abdomen and pelvis was performed. Using automated exposure control and ad justment of the mA and/or kV according to patient size, radiation dose was kept as low as reasonably achievable to obtain optimal diagnostic quality images. DICOM format image data is available electro nically for review and comparison. FINDINGS: LOWER LUNGS: The visualized lower lungs are clear. LIVER: Homogeneous fatty density without lesion. There is no dilation of the biliary tree. No calcified ga llstones. SPLEEN: Normal size without lesion. PANCREAS: Within normal limits. KIDNEYS: Normal in size and shape. There is no mass, stone or hydronephrosis. ADRENAL GLANDS: Within normal limits. VASCULAR: There is no aortic aneurysm. BOWEL/MESENTERY: The stomach, small bowel, and colon demonstrate no acute abnormality. There is no free intraperitone al air or fluid. Normal appendix. ABDOMINAL WALL: Within normal limits. RETROPERITONEUM: There is no lymphadenopathy. BLADDER: No wall thickening or mass. REPRODUCTIVE: Within normal limits. INGUINAL: There is no lymphadenopathy or hernia. MUSCULOSKELETAL: No acute bony abnormality demonstrated. There are lumbar spine degenerative changes. A mild S. shaped thoracolumbar curvature is present. CONCLUSION: 1. Fatty liver. 2. Degenerative changes of the lumbar spine. Mild S. shape thoracolumbar curvature. 3. Otherwise negative. No obstruction or acute/focal inflammatory changes are demonstrated. Jonny Sam MD on January 31, 2018 at 20:10 Board Certified Radiologist. This report was verified electronically.
[2018-01-31] MEDS ORDERED: PANT40TA3 PO (20:19)
[2018-01-31] MEDS ORDERED: ALUMINUM/MAGNESIUM/SIMETH 30 ML CUP PO ONE (20:30)
[2018-01-31] MEDS ORDERED: LIDOCAINE VISCOUS 2% SOLN 15 ML UDC PO ONE (20:30)
[2018-01-31 21:21] VITALS: BP 132/78
== END 2018-01-31 21:24 | disposition home or self-care (01) ==
LOC: NEPE 16:19
DX: K29.00 Acute gastritis without bleeding (principal); F10.10 Alcohol abuse, uncomplicated; R11.0 Nausea; Z72.0 Tobacco use
CPT/HCPCS: 74177; 80053; 81001; 83690; 85025; 96361; 96374; 96375; 99284; J2405; J7030; Q9967